=== PATIENT | female | born 1995 | race African-American/Black ===

== ENCOUNTER 2017-06-23 12:23 | Emergency (ER) | payer OTHER ==
[2017-06-23 12:51] VITALS: BP 133/80; PULSE 114; RESP 16; TEMP 98.9
--- NOTE | 2017-06-23 14:44 | PD ---
HPI Chief Complaint: Headache Time Seen by Provider: 14:43 Travel History International Travel<30 days: No Contact w/Intl Traveler<30days: No Traveled to known affect area: No History of Present Illness HPI 21-year-old female came to the emergency room with history of headache that has been going on for past 3 days. Patient says she has history of migraine but usually it goes away on its own and she has been functional with her headaches. Today the headache has been severe and patient has not been able to function. That is why she came to the emergency room. Patient says she usually does not go to the emergency room for her headaches. She is not from the area and is here to go to a school. This the first time she has been in this emergency department or [facility] system. Vital signs have been suggestive of tachycardia. Upon asking patient said she has slight chance that she could be . She points her headache to all over her head with no radiation. No aggravating or relieving symptoms identified. Patient is awake and answering questions appropriately. Patient rated her headache as 8 out of 10. PFSH Past Medical History Narrative Medical List of her home medications reviewed from the nursing note. Social History Tobacco Use: No Allergies-Medications (Allergen,Severity, Reaction): Coded Allergies: No Known Allergies (Unverified , 06/23/17) Comments No known drug allergies. Reported Meds & Prescriptions Reported Meds & Active Scripts Active Fioricet (Nfwbrnhkkz-Vslhqjlqqznlb-Lzzpdwtu) 50-300-40 Mg Cap 1 Cap PO Q4H PRN Narrative Medication Waiting for the nurse to do the med reconciliation. Review of Systems Except as stated in HPI: all other systems reviewed are Neg Neurologic: Positive: Headache Physical Exam Narrative GENERAL: Awake, alert, mild distress SKIN: Focused skin assessment warm/dry. HEAD: Atraumatic. Normocephalic. EYES: Pupils equal and round. No scleral icterus. No injection or drainage. ENT: No nasal bleeding or discharge. Mucous membranes pink and moist. NECK: Trachea midline. No JVD. Neck is supple and no signs of meningismus CARDIOVASCULAR: Regular rate and rhythm. No murmur appreciated. RESPIRATORY: No accessory muscle use. Clear to auscultation. Breath sounds equal bilaterally. GASTROINTESTINAL: Abdomen soft, non-tender, nondistended. Hepatic and splenic margins not palpable. MUSCULOSKELETAL: No obvious deformities. No clubbing. No cyanosis. No edema. NEUROLOGICAL: Awake and alert. No obvious cranial nerve deficits. Motor grossly within normal limits. Normal speech. PSYCHIATRIC: Appropriate mood and affect; insight and judgment normal. Data Data Last Documented VS Orders Orders Complete Blood Count With Diff (06/23/17 14:58) Basic Metabolic Panel (Bmp) (06/23/17 14:58) Ecg Monitoring (06/23/17 14:58) Iv Access Insert/Monitor (06/23/17 14:58) Oximetry (06/23/17 14:58) Sodium Chloride 0.9% Flush (Ns Flush) (06/23/17 15:00) Prochlorperazine Inj (Compazine Inj) (06/23/17 15:00) Sodium Chlor 0.9% 1000 Ml Inj (Ns 1000 M (06/23/17 14:58) Ed Urine Pregnancytest Poc (06/23/17 14:58) Urinalysis - C+S If Indicated (06/23/17 15:00) Sodium Chlor 0.9% 1000 Ml Inj (Ns 1000 M (06/23/17 16:15) Potassium Chloride (Kcl) (06/23/17 16:15) Ed Discharge Order (06/23/17 16:20) Labs Laboratory Tests Test 06/23/17 15:10 White Blood Count 12.4 TH/MM3 Red Blood Count 5.33 MIL/MM3 Hemoglobin 10.6 GM/DL Hematocrit 33.8 % Mean Corpuscular Volume 63.4 FL Mean Corpuscular Hemoglobin 20.0 PG Mean Corpuscular Hemoglobin Concent 31.5 % Red Cell Distribution Width 14.8 % Platelet Count 369 TH/MM3 Mean Platelet Volume 8.1 FL Neutrophils (%) (Auto) 70.0 % Lymphocytes (%) (Auto) 22.7 % Monocytes (%) (Auto) 6.9 % Eosinophils (%) (Auto) 0.1 % Basophils (%) (Auto) 0.3 % Neutrophils # (Auto) 8.7 TH/MM3 Lymphocytes # (Auto) 2.8 TH/MM3 Monocytes # (Auto) 0.9 TH/MM3 Eosinophils # (Auto) 0.0 TH/MM3 Basophils # (Auto) 0.0 TH/MM3 CBC Comment DIFF FINAL Differential Comment Urine Color YELLOW Urine Turbidity CLEAR Urine pH 6.0 Urine Specific [place] 1.045 Urine Protein 30 mg/dL Urine Glucose (UA) NEG mg/dL Urine Ketones 40 mg/dL Urine Occult Blood NEG Urine Nitrite NEG Urine Bilirubin NEG Urine Urobilinogen 2.0 MG/DL Urine Leukocyte Esterase SMALL Urine WBC 2 /hpf Urine Squamous Epithelial Cells 2 /hpf Urine Hyaline Casts 11 /lpf Urine Mucus MANY /lpf Microscopic Urinalysis Comment CULT NOT INDICATED Blood Urea Nitrogen 7 MG/DL Creatinine 0.63 MG/DL Random Glucose 90 MG/DL Calcium Level 9.3 MG/DL Sodium Level 138 MEQ/L Potassium Level 3.2 MEQ/L Chloride Level 102 MEQ/L Carbon Dioxide Level 25.2 MEQ/L Anion Gap 11 MEQ/L Estimat Glomerular Filtration Rate 146 ML/MIN [facility] Medical Decision Making Medical Screen Exam Complete: Yes Emergency Medical Condition: Yes Medical Record Reviewed: Yes Differential Diagnosis Status migrainous, headache NOS Narrative Course 4:16 PM blood test results are back. Patient has slight leukocytosis and anemia. Chemistry appears to be within normal limits. UA suggestive of dehydration. She was given a liter of fluid bolus and IV Compazine. I have ordered a second bolus. I will reassess her. 4:20 PM headache currently is 4 out of 10. She will be discharged home after the second bolus. Procedures EKG Prior to Arrival: No Diagnosis Primary Impression: Migraine with status migrainosus Qualified Codes: G43.911 - Migraine, unspecified, intractable, with status migrainosus Referrals: Primary Care Physician 3 days Additional Instructions: Return to the ER if condition worsens or any other new concerns. Otherwise follow-up with your primary care. Drink lots of fluid. Drink coffee or caffeinated beverages as it would help with the headache. Do not drink alcohol or wine. Do not eat stuff like cheese, chocolate etc. Take the medication as per the prescription direction. Med/Other Pt SpecificInfo: Prescription(s) given Scripts Zowtrzfsfd-Zcixwkqcrwsie-Qbbeckwp (Fioricet) 50-300-40 Mg Cap 1 CAP PO Q4H Y for HEADACHE, #15 CAP 0 Refills Prov: Miles Pritchett MD 06/23/17 Disposition: 01 DISCHARGE HOME Condition: Stable Miles Pritchett MD Jun 23, 2017 14:44
[2017-06-23] MEDS ORDERED: SODIUM CHLOR 0.9% 1000 ML INJ 1,000 ML IV ONE ×2 (14:58→16:15)
[2017-06-23] MEDS ORDERED: PROCHLORPERAZINE INJ 10 MG/2 ML VIAL IVP ONE (15:00)
[2017-06-23] MEDS ORDERED: SODIUM CHLORIDE 0.9% FLUSH 10 ML FLUSH IVF PRN (15:00)
[2017-06-23 15:14] VITALS: O2SAT 100
[2017-06-23 15:18] VITALS: BP 132/76; PULSE 97; RESP 18; O2SAT 99
[2017-06-23 15:33] LABS: AUTOMATED NEUTROPHIL # 8.7 TH/MM3 (1.8-7.7); BASOPHIL % 0.3 % (0.0-2.0); EOSINOPHIL % 0.1 % (0.0-4.0); HEMATOCRIT 33.8 % (35.0-46.0); HEMOGLOBIN 10.6 GM/DL (11.6-15.3); LYMPH % 22.7 % (9.0-44.0); LYMPHOCYTE # 2.8 TH/MM3 (1.0-4.8); MEAN CELL VOLUME 63.4 FL (80.0-100.0); MEAN CORPUSCULAR HGB CONC 31.5 % (32.0-36.0); MEAN PLATELET VOLUME 8.1 FL (7.0-11.0); MONO % 6.9 % (0.0-8.0); MONOCYTE # 0.9 TH/MM3 (0-0.9); PLATELET COUNT 369 TH/MM3 (150-450); RED BLOOD COUNT 5.33 MIL/MM3 (4.00-5.30); RED CELL DISTRIBUTION WIDTH 14.8 % (11.6-17.2); WHITE BLOOD COUNT 12.4 TH/MM3 (4.0-11.0)
[2017-06-23 16:05] LABS: BILIRUBIN, URINE NEG (NEG); BLOOD, URINE NEG (NEG); GLUCOSE,URINE NEG (NEG); HYALINE CAST, URINE 11 /lpf (RARE); KETONE, URINE 40 mg/dL (NEG); MUCUS URINE MANY /lpf (OCC); NITRITE,URINE NEG (NEG); SQUAMOUS EPITHELIAL CELL URINE 2 /hpf (0-5); URINE COLOR YELLOW (YELLW/STRAW); URINE LEUKOCYTE ESTERASE SMALL (NEG)
[2017-06-23 16:09] LABS: BICARBONATE 25.2 MEQ/L (21.0-32.0); CALCIUM 9.3 MG/DL (8.5-10.1); CREATININE 0.63 MG/DL (0.50-1.00)
[2017-06-23] MEDS ORDERED: POTASSIUM CHLORIDE 20 MEQ CONTROLLED RELEASE TAB PO ONE (16:15)
[2017-06-23] MEDS ORDERED: BUTA1CAP PO (16:20)
== END 2017-06-23 18:25 | disposition home or self-care (01) ==
LOC: NEPD 12:23
DX: G43.911 Migraine, unspecified, intractable, with status migrainosus (principal)
CPT/HCPCS: 80048; 81001; 84703; 85025; 96374; 99284; J0780; J7030